=== PATIENT | female | born 1970 | race Caucasian/White ===

== ENCOUNTER 2017-12-30 13:20 | Observation (INO) | payer BC ==
[~2017-12-30] VITALS: Ht 170.2 cm; Wt 89.9 kg
[2017-12-30 14:07] LABS: BASOPHIL (%) 0.5 % (0-1); EOSINOPHIL (%) 1.5 % (0-5); EOSINOPHIL COUNT 0.1 K/uL (0-0.3); HEMATOCRIT 36.8 % (36.0-46.0); HEMOGLOBIN 12.8 G/DL (11.9-15.5); IMMATURE GRANULOCYTE (%) 0.2 % (0.0-0.7); LYMPHOCYTE (%) 37.4 % (15-42); LYMPHOCYTE COUNT 3.2 K/uL (1.0-2.8); MCHC 34.8 G/DL (30.0-36.0); MCV 86.4 FL (83-99); MONOCYTE (%) 6.6 % (3-12); MONOCYTE COUNT 0.6 K/uL (0-0.8); NEUTROPHIL (%) 53.8 % (45-76); NEUTROPHIL COUNT 4.6 K/uL (1.8-6.4); PLATELET COUNT 345 K/uL (156-360); RBC DIS.WIDTH-CV 12.9 % (11.8-14.6); RBC DIS.WIDTH-SD 40.2 % (39-53); RED BLOOD COUNT 4.26 M/uL (3.80-5.20); WHITE BLOOD COUNT 8.5 K/uL (4.1-10.2)
[2017-12-30 14:16] LABS: ALBUMIN 3.6 g/dL (3.2-4.8); CHLORIDE 112 mEq/L (99-109); POTASSIUM 3.2 mEq/L (3.7-5.4); SODIUM 141 mEq/L (136-147)
[2017-12-30 14:17] LABS: MAGNESIUM 1.5 mg/dL (1.3-2.7)
[2017-12-30 14:19] LABS: GLUCOSE 90 mg/dL (70-99); TOTAL PROTEIN 6.4 g/dL (6.4-8.3)
[2017-12-30 14:21] LABS: TOTAL BILIRUBIN 0.5 mg/dL (0.0-1.0)
[2017-12-30 14:22] LABS: ALKALINE PHOSPHATASE 46 IU/L (3-129)
[2017-12-30 14:23] LABS: CREATININE 0.7 mg/dL (0.6-1.3); GFR ESTIMATE (CALCULATED) > 59 mL/min/
[2017-12-30 14:24] LABS: UREA NITROGEN (BUN) 10 mg/dL (9-23)
[2017-12-30 14:25] LABS: AST (GOT) 16 IU/L (2-34)
[2017-12-30 14:26] LABS: ALT (GPT) 14 IU/L (3-49)
[2017-12-30 14:29] LABS: TROP-I INTERPRETATION NEGATIVE; TROPONIN-I 0.14 ng/mL (0.0-0.30)
[2017-12-30] MEDS ORDERED: medical marijuana (15:09)
[2017-12-30] MEDS ORDERED: ADVIL,NUPRIN,M200 MG PO (15:10)
[2017-12-30] MEDS ORDERED: FIBER0.4 GM PO (15:10)
[2017-12-30 16:38] LABS: HDL CHOLESTEROL 32 MG/DL (Desirable>=50); LDL CHOLESTEROL 76 mg/dL (Desirable<100); NON-HDL CHOLESTEROL 99 mg/dL (Desirable<160); TOTAL CHOLESTEROL 131 mg/dL (Desirable<200); TRIGLYCERIDES 117 MG/DL (Normal: <150)
[2017-12-30 17:14] VITALS: BP 128/79
[2017-12-30 17:51] LABS: TROP-I INTERPRETATION INDETERMINATE; TROPONIN-I 0.33 ng/mL (0.0-0.30)
[2017-12-30 19:30] VITALS: BP 135/70
[2017-12-30 23:30] LABS: TROP-I INTERPRETATION NEGATIVE; TROPONIN-I 0.22 ng/mL (0.0-0.30)
[2017-12-30 23:53] VITALS: BP 90/53
[2017-12-31 03:54] VITALS: BP 88/55
[2017-12-31 06:00] LABS: HEMATOCRIT 34.9 % (36.0-46.0); HEMOGLOBIN 11.7 G/DL (11.9-15.5); MCH 29.5 PG (29.0-34.0); MCHC 33.5 G/DL (30.0-36.0); MCV 87.9 FL (83-99); PLATELET COUNT 329 K/uL (156-360); RBC DIS.WIDTH-CV 13.1 % (11.8-14.6); RBC DIS.WIDTH-SD 42.3 % (39-53); RED BLOOD COUNT 3.97 M/uL (3.80-5.20); WHITE BLOOD COUNT 5.1 K/uL (4.1-10.2)
[2017-12-31 06:21] VITALS: BP 105/67
[2017-12-31 06:24] LABS: CHLORIDE 112 MEQ/L (99-109); CREATININE 0.6 MG/DL (0.6-1.3); GFR ESTIMATE (CALCULATED) > 59 mL/min/; GLUCOSE 109 mg/dL (70-99); SODIUM 139 MEQ/L (136-147); UREA NITROGEN (BUN) 10 mg/dL (9-23)
[2017-12-31 06:26] LABS: POTASSIUM 4.4 MEQ/L (3.7-5.4)
[2017-12-31 09:04] VITALS: BP 130/80
[2017-12-31 12:18] VITALS: BP 135/72
== END 2017-12-31 14:42 | disposition home or self-care (01) ==
LOC: EME 13:20 → EDOF 15:11 → ENRESERV 15:12 → 5WEST 17:09
PROVIDERS: Emergency Medicine; Hospitalist
DX: I47.1 Supraventricular tachycardia (principal); R07.9 Chest pain, unspecified; F41.9 Anxiety disorder, unspecified; Z79.899 Other long term (current) drug therapy; R06.02 Shortness of breath; Z87.891 Personal history of nicotine dependence; F43.10 Post-traumatic stress disorder, unspecified; Z87.19 Personal history of other diseases of the digestive system; E07.9 Disorder of thyroid, unspecified; Z86.73 Personal history of transient ischemic attack (TIA), and cerebral infarction without residual deficits; R42 Dizziness and giddiness; Z90.710 Acquired absence of both cervix and uterus; Z88.2 Allergy status to sulfonamides; Z88.5 Allergy status to narcotic agent
CPT/HCPCS: 71045; 80048; 80053; 80061; 80306 90; 83735; 84484; 85025; 85027; 85379; 93005; 93306; 99281; 99285; G0378; J0153; J1650; J7030; S0028